=== PATIENT | female | born 2000 | race Caucasian/White ===

== ENCOUNTER 2021-09-17 14:33 | Outpatient (CLI) | payer SELFPAY ==
[2021-09-21 20:56] LABS: HPV Reflexed? NOT INDICATED
== END 2021-09-17 23:59 | disposition home or self-care (01) ==
LOC: LABSPEC 11-04 14:33
PROVIDERS: Visit Provider Obstetrics & Gynecology
DX: Z12.4 Encounter for screening for malignant neoplasm of cervix (principal)
CPT/HCPCS: 88175; G0145

== ENCOUNTER → 2021-12-09 | Outpatient (CLI) | payer SELFPAY ==
[2021-12-13 05:06] LABS: Chlamydia By Nucleic Acid AMP Negative (Negative)
[2021-12-13 14:28] LABS: Gonococcus By Nucleic Acid AMP Negative (Negative)
== END | disposition home or self-care (01) ==
PROVIDERS: Referring Provider Obstetrics & Gynecology; Visit Provider Obstetrics & Gynecology
DX: Z34.80 Encounter for supervision of other normal pregnancy, unspecified trimester (principal)
CPT/HCPCS: 87491; 87591

== ENCOUNTER → 2022-02-02 | Outpatient (CLI) | payer SELFPAY ==
[2022-02-02 10:07] LABS: Absolute Lymphocyte Count 1.94 X10^3/uL (0.83-4.51); Absolute Neutrophil Count 11.4 X10^3/uL (2.0-7.7); Basophil# 0.03 X10^3/uL; Basophil% 0.2 % (0-1); Eosinophil# 0.26 X10^3/uL; Eosinophils% 1.8 % (0-5); Hematocrit 38.6 % (37-47); Hemoglobin 13.2 g/dL (12.0-15.0); Lymphocyte # 1.94 X10^3/ul (0.83-4.51); Lymphocyte % 13.3 % (19-41); Mean Corp Hgb Conc 34.2 g/dL (32-36); Mean Corpuscular Hgb 31.2 pg (27.0-32.0); Mean Corpuscular Volume 91.3 fL (81-99); Mean Platelet Vol. 9.9 fl (6.2-12.0); Monocyte# 0.85 X10^3/uL; Monocyte% 5.8 % (0-10); NRBC Flagged by Analyzer 0 % (0-5); Neutrophil # 11.42 X10^3/uL (2.7-7.7); Neutrophil % 78.4 % (47-70); Platelet Count 291 K/mm3 (150-450); RBC Distribution Width CV 13.2 % (11.6-14.6); RBC Distribution Width SD 43.7 fl (35.1-43.9); Red Blood Count 4.23 M/mm3 (4.2-5.4); White Blood Count 14.6 K/mm3 (4.4-11.0)
[2022-02-02 11:11] LABS: HIV - WCH Non-Reactive (Nonreactive); Hepatitis B Surface Antigen Non-Reactive (Nonreactive); Hepatitis C Antibody Non-Reactive (Nonreactive); Rubella IgG Non-Reactive (Nonreactive); Syphilis Antibodies Non-reactive
== END | disposition home or self-care (01) ==
LOC: PAVLAB 09:49
PROVIDERS: Referring Provider Obstetrics & Gynecology; Visit Provider Obstetrics & Gynecology
DX: Z34.80 Encounter for supervision of other normal pregnancy, unspecified trimester (principal)
CPT/HCPCS: 36415; 85025; 86703; 86762; 86780; 86803; 86850; 86900; 86901; 87340

== ENCOUNTER → 2022-02-15 | Outpatient (CLI) | payer SELFPAY ==
--- NOTE | 2022-02-15 15:55 | US_ITS ---
STUDY: SECOND AND THIRD TRIMESTER OBSTETRICAL ULTRASOUND REASON FOR EXAM: Female, 21 years old . anatomy. LMP: 10/04/2021. TECHNIQUE: Transabdominal and Transvaginal TECHNICAL QUALITY: Adequate. PRIOR ULTRASOUND: None. FINDINGS: There is a single intrauterine fetus. The fetus is in a cephalic presentation. There is demonstrated cardiac activity with a heart rate of 148 bpm. There is a normal amniotic fluid volume. The largest amniotic fluid pocket measures 9.3 cm x 4.2 cm. The amniotic fluid index (KILLIAN) is within normal limits. The placenta is posterior in location and is not low lying. There are Grade 0 placental changes. The cervix measures 3.7 cm in length. The adnexal regions are not visualized. BIOMETRY: BPD: 4.24 cm: 18 weeks, 5 days HC: 16.77 cm: 19 weeks, 2 days AC: 15.12 cm: 20 weeks, 2 days FL: 2.98 cm: 19 weeks, 1 days CI: 74.2% FL/BPD: 70.2% FL/HC: FL/AC: 19.7% HC/AC: 1.11 age by current US: 19 weeks, 1 days. MAGDALENO by current US: 07/11/2022. Estimated weight: 309 grams, +/- 46 grams, 78 %. Age by LMP: 19 weeks, 1 days. MAGDALENO by LMP: 07/11/2022. ANATOMY: Gender: Male Cranium: Normal lateral ventricles. Normal choroid plexus. Normal cerebellum. Normal cisterna magna. Normal face, nose and lips. Chest: Normal 4-chamber heart. Abdomen/Pelvis: Normal diaphragm. Normal stomach. Normal abdominal wall. Normal cord insertion. Normal 3 vessel cord. Normal kidneys. Normal bladder. Spine: Normal cervical spine. Normal thoracic spine. Normal lumbar spine. Normal sacrum. Extremities: Normal bilateral upper extremities. Normal bilateral lower extremities. IMPRESSION: Single live uterine gestation with a mean gestational age of 19 weeks and 1 day. Electronically Signed: Jamel Nelson MD at 13:26 EDT , STUDY: FIRST TRIMESTER OBSTETRICAL ULTRASOUND REASON FOR EXAM: Female, 21 years old . Cervical length measurement. LMP: 10/04/2021 TECHNIQUE: Transvaginal TECHNICAL QUALITY: Adequate. PRIOR ULTRASOUND: None. FINDINGS: The cervical length measures 3.7 cm. US/OB Anatomy Scan IMPRESSION: Cervical length measures 3.7 cm. Electronically Signed: Jamel Nelson MD at 13:27 EDT ,
== END | disposition home or self-care (01) ==
LOC: OPUS 15:53 → US 15:54
PROVIDERS: Visit Provider Obstetrics & Gynecology
DX: Z34.80 Encounter for supervision of other normal pregnancy, unspecified trimester (principal)
CPT/HCPCS: 76805; 76817